=== PATIENT | female | born 1965 ===

== ENCOUNTER 2025-04-11 06:30 | Day surgery (SDC) | payer BC ==
[~2025-04-11] VITALS: Ht 167.6 cm; Wt 71.9 kg
[2025-04-11] MEDS ORDERED: DULO30 (06:57)
[2025-04-11] MEDS ORDERED: PREG75 (06:57)
[2025-04-11] MEDS ORDERED: EUTHYROX88 MCG (06:58)
[2025-04-11] MEDS ORDERED: RABEPRAZOLE SOD20 MG (06:58)
[2025-04-11] MEDS ORDERED: SUMA25 (07:00)
== END 2025-04-11 08:50 | disposition home or self-care (01) ==
LOC: ORSCSDS 06:30
PROVIDERS: Specialist
PROC: 0DB68ZX Excision of Stomach, Via Natural or Artificial Opening Endoscopic, Diagnostic (ICD-10-PCS; principal; 2025-04-11 08:00)
PROC: 0DB58ZX Excision of Esophagus, Via Natural or Artificial Opening Endoscopic, Diagnostic (ICD-10-PCS; principal; 2025-04-11 08:00)
DX: R10.11 Right upper quadrant pain (principal); R11.2 Nausea with vomiting, unspecified; R68.81 Early satiety; R63.4 Abnormal weight loss; Z79.899 Other long term (current) drug therapy
CPT/HCPCS: 88305; 88342; J2704; J7120